=== PATIENT | female | born 1940 | race Caucasian/White ===

== ENCOUNTER → 2023-03-06 | Day surgery (SDC) | payer MEDICARE, BC ==
[~2023-03-06] MED LIST: Lactated Ringers 1,000 ML IV SCH
[2023-03-06 07:46] LABS: INR 1.08 (0.92-1.18); PROTHROMBIN TIME 11.1 SEC (9.3-11.3)
== END ==
LOC: CC.SDS 07:16
PROVIDERS: ATTEND Dentist General Practice
DX: K08.59 Other unsatisfactory restoration of tooth (principal); I48.20 Chronic atrial fibrillation, unspecified; Z53.8 Procedure and treatment not carried out for other reasons; Z88.2 Allergy status to sulfonamides; Z88.5 Allergy status to narcotic agent; Z88.1 Allergy status to other antibiotic agents; Z88.8 Allergy status to other drugs, medicaments and biological substances
CPT/HCPCS: 36415; 85610; J7120

== ENCOUNTER → 2023-03-28 | Day surgery (SDC) | payer MEDICARE, BC ==
[~2023-03-28] MED LIST changes: +Dexamethasone 4 MG/ML SDV ONE; +Etomidate 2 MG/ML 10 ML SDV ONE; +Glycopyrrolate 0.2 MG/ML SDV ONE; +Lidocaine 2% 20 ML MDV ONE; +Midazolam 1 MG/ML 2 ML SDV ONE; +Ondansetron 4 MG/2 ML SDV ONE; +Propofol 200 MG/20 ML SDV ONE; +Succinylcholine 200 MG/10 ML MDV ONE; +fentaNYL 50 MCG/ML SDV ONE
[2023-03-28 10:42] LABS: INR 0.99 (0.92-1.18); PROTHROMBIN TIME 10.2 SEC (9.3-11.3)
== END ==
LOC: CC.SDS 10:18
PROVIDERS: ATTEND Dentist General Practice
DX: K02.9 Dental caries, unspecified (principal); I48.0 Paroxysmal atrial fibrillation; N18.30 Chronic kidney disease, stage 3 unspecified; I50.32 Chronic diastolic (congestive) heart failure; I13.0 Hypertensive heart and chronic kidney disease with heart failure and stage 1 through stage 4 chronic kidney disease, or unspecified chronic kidney disease; E78.00 Pure hypercholesterolemia, unspecified; I25.2 Old myocardial infarction; I25.10 Atherosclerotic heart disease of native coronary artery without angina pectoris; G47.00 Insomnia, unspecified; K21.9 Gastro-esophageal reflux disease without esophagitis; Z79.01 Long term (current) use of anticoagulants; Z79.899 Other long term (current) drug therapy; Z88.2 Allergy status to sulfonamides; Z88.7 Allergy status to serum and vaccine; Z88.1 Allergy status to other antibiotic agents; Z88.5 Allergy status to narcotic agent; Z88.8 Allergy status to other drugs, medicaments and biological substances
CPT/HCPCS: 00170; 36415; 85610; 99100; J0330; J1100; J2250; J2405; J2704; J3010; J3490